=== PATIENT | male | born 1950 | race Caucasian/White ===

== ENCOUNTER 2019-07-06 08:45 | Inpatient (IN) ==
[2019-07-06] MEDS ORDERED: Naloxone 0.4 MG/ML INJ IVP PRN (10:53)
[2019-07-06] MEDS ORDERED: traMADol 50 MG TABLET PO PRN (11:37)
[2019-07-06] MEDS ORDERED: Acetaminophen 325 MG TABLET PO PRN (11:37)
[2019-07-06] MEDS: *HR* OxyCODONE Immed Rel 5 MG TABLET PO PRN ×2 (12:01→19:28)
[2019-07-06 12:13] LABS: Troponin I 0.13 ng/mL (< 0.04)
[2019-07-06] MEDS ORDERED: *HR* Phytonadione 5 MG TABLET PO ONE (12:38)
[2019-07-06] MEDS: hydrALAZINE 25 MG TABLET PO SCH (15:42)
[2019-07-06] MEDS ORDERED: Ondansetron 4 MG/2 ML VIAL IVP PRN (19:11)
[2019-07-07] MEDS ORDERED: Ondansetron 4 MG/2 ML VIAL IVP SCH
[2019-07-07] MEDS: hydrALAZINE 25 MG TABLET PO SCH ×4 (00:55→21:58)
[2019-07-07 01:15] LABS: Basophils % 0.4 %; Eosinophils # 0.2 K/mcL (0.0-0.6); Eosinophils % 2.9 %; Hematocrit 26.9 % (37.5-50.1); Hemoglobin 8.4 g/dL (12.9-16.9); Immature Granulocytes % 0.1 % (0-4); Lymphocytes # 0.6 K/mcL (0.6-4.6); Lymphocytes % 9.4 %; Mean Corpuscular HGB Conc 31.2 g/dL (31.6-35.5); Mean Corpuscular Hemoglobin 33.5 pg (28.0-33.3); Mean Corpuscular Volume 107.2 fL (83.0-100.0); Mean Platelet Volume 9.5 fL (9.4-12.4); Monocytes # 0.5 K/mcL (0.0-1.3); Monocytes % 6.6 %; Neutrophils # 5.5 K/mcL (1.6-8.9); Platelet Count 123 K/mcL (140-400); Red Blood Count 2.51 M/mcL (4.19-5.50); Red Cell Distribution Width 13.8 % (11.5-14.5); Segmented Neutrophils % 80.6 %; White Blood Count 6.8 K/mcL (4.3-11.1)
[2019-07-07 01:24] LABS: INR 2.2; Prothrombin Time 25.2 Seconds (9.4-12.1)
[2019-07-07 01:34] LABS: Calcium 8.7 mg/dL (8.6-10.3); Potassium 4.2 mEq/L (3.5-5.1)
[2019-07-07] MEDS: *HR* OxyCODONE Immed Rel 5 MG TABLET PO PRN ×2 (02:49→10:31)
[2019-07-07] MEDS ORDERED: Isosorbide MONOnitrate (24 HR) 30 MG TAB.ER.24H PO SCH (09:00)
[2019-07-07] MEDS ORDERED: FLUoxetine 20 MG CAPSULE PO SCH (09:00)
[2019-07-07] MEDS ORDERED: *HR* Heparin 5,000 UNIT/ML VIAL IVP PRN ×3 (12:32→20:45)
[2019-07-07] MEDS ORDERED: Heparin 25,000 UNIT/250 ML D5W 25,000 UNIT/250 ML IV.SOLN IVC SCH (12:45)
[2019-07-07 13:47] LABS: Hematocrit 26.3 % (37.5-50.1); Hemoglobin 8.2 g/dL (12.9-16.9); Mean Corpuscular HGB Conc 31.2 g/dL (31.6-35.5); Mean Corpuscular Hemoglobin 33.3 pg (28.0-33.3); Mean Corpuscular Volume 106.9 fL (83.0-100.0); Platelet Count 110 K/mcL (140-400); Red Blood Count 2.46 M/mcL (4.19-5.50); Red Cell Distribution Width 13.6 % (11.5-14.5); White Blood Count 6.4 K/mcL (4.3-11.1)
[2019-07-07 13:57] LABS: Heparin anti-factor XA UFH 0.02 IU/mL (0.30-0.70)
[2019-07-07 13:58] LABS: INR 1.5; Prothrombin Time 17.4 Seconds (9.4-12.1)
[2019-07-07] MEDS ORDERED: 0.9 % Sodium Chloride 250 ML ONE ×2 (14:13→16:47)
[2019-07-07] MEDS ORDERED: Morphine Sulfate 2 MG/ML SYRINGE IVP PRN (16:19)
[2019-07-07 17:04] LABS: INR 1.4; Prothrombin Time 15.9 Seconds (9.4-12.1)
[2019-07-07] MEDS ORDERED: Lidocaine -MPF 2% 2 ML VIAL ONE (17:47)
[2019-07-07] MEDS ORDERED: *HR* Etomidate 40 MG/20 ML VIAL IVP ONE (17:48)
[2019-07-07] MEDS ORDERED: *HR* FentaNYL (PF) 100 MCG/2 ML VIAL ONE (17:49)
[2019-07-07] MEDS ORDERED: *HR* PHENYLEPHRINE 1,000 MCG/10 ML SYRINGE IVP ONE (17:49)
[2019-07-07] MEDS ORDERED: ceFAZolin 2,000 MG in Water for inj. (sterile) 20 ML IVP ONE (17:52)
[2019-07-07] MEDS ORDERED: EPHEDrine 50 MG/ML VIAL ONE (17:56)
[2019-07-07] MEDS ORDERED: *HR* Propofol 200 MG/20 ML VIAL IVP ONE (17:58)
[2019-07-07] MEDS ORDERED: *HR* HYDROmorphone (PF) 1 MG/ML SYRINGE IVP PRN (18:06)
[2019-07-07] MEDS ORDERED: Ondansetron 4 MG/2 ML VIAL ONE (18:29)
[2019-07-07] MEDS ORDERED: *HR* Metoprolol 5 MG/5 ML VIAL IVP ONE (18:34)
[2019-07-07 19:16] LABS: Hematocrit 24.9 % (37.5-50.1); Hemoglobin 7.8 g/dL (12.9-16.9)
[2019-07-07] MEDS ORDERED: Naloxone 0.4 MG/ML INJ IVP PRN (19:43)
[2019-07-07] MEDS ORDERED: Ondansetron 4 MG/2 ML VIAL IVP PRN (19:43)
[2019-07-07] MEDS ORDERED: *HR* Heparin 5,000 UNIT/ML VIAL IVP ONE (20:45)
[2019-07-07] MEDS ORDERED: Darbepoetin 100 MCG/0.5 ML SYRINGE SQ ONE ×2 (21:00)
[2019-07-07 21:19] LABS: Hemoglobin 7.8 g/dL (12.9-16.9); Red Cell Distribution Width 13.7 % (11.5-14.5)
[2019-07-07 21:21] LABS: Immature Platelets 2.5 % (1.1-6.1); Mean Corpuscular HGB Conc 31.2 g/dL (31.6-35.5); Mean Corpuscular Hemoglobin 33.6 pg (28.0-33.3); Mean Corpuscular Volume 107.8 fL (83.0-100.0); Red Blood Count 2.32 M/mcL (4.19-5.50); White Blood Count 7.6 K/mcL (4.3-11.1)
[2019-07-07 21:27] LABS: Heparin anti-factor XA UFH 0.04 IU/mL (0.30-0.70); INR 1.2; Prothrombin Time 13.9 Seconds (9.4-12.1)
[2019-07-07] MEDS ORDERED: *HR* Warfarin 5 MG TABLET PO SCH (21:30)
[2019-07-07] MEDS: Heparin 25,000 UNIT/250 ML D5W 25,000 UNIT/250 ML IV.SOLN IVC SCH (21:56)
[2019-07-08 04:54] LABS: Hemoglobin 6.9 g/dL (12.9-16.9); Immature Granulocytes % 0.5 % (0-4); Monocytes % 7.7 %
[2019-07-08 04:56] LABS: Basophils % 0.4 %; Eosinophils # 0.2 K/mcL (0.0-0.6); Eosinophils % 2.5 %; Hematocrit 22.3 % (37.5-50.1); Immature Platelets 2.7 % (1.1-6.1); Lymphocytes # 0.6 K/mcL (0.6-4.6); Lymphocytes % 7.4 %; Mean Corpuscular HGB Conc 30.9 g/dL (31.6-35.5); Mean Corpuscular Hemoglobin 33.5 pg (28.0-33.3); Mean Corpuscular Volume 108.3 fL (83.0-100.0); Mean Platelet Volume 10.7 fL (9.4-12.4); Monocytes # 0.7 K/mcL (0.0-1.3); Red Blood Count 2.06 M/mcL (4.19-5.50); Red Cell Distribution Width 13.5 % (11.5-14.5); Segmented Neutrophils % 81.5 %; White Blood Count 8.4 K/mcL (4.3-11.1)
[2019-07-08 05:00] LABS: Neutrophils # 6.9 K/mcL (1.6-8.9); Platelet Count 88 K/mcL (140-400)
[2019-07-08 05:16] LABS: Calcium 8.6 mg/dL (8.6-10.3); Potassium 4.2 mEq/L (3.5-5.1)
[2019-07-08] MEDS: hydrALAZINE 25 MG TABLET PO SCH ×3 (05:28→21:00)
[2019-07-08 06:03] LABS: INR 1.3; Prothrombin Time 14.2 Seconds (9.4-12.1)
[2019-07-08] MEDS: traMADol 50 MG TABLET PO PRN (08:01)
[2019-07-08] MEDS: FLUoxetine 20 MG CAPSULE PO SCH (08:01)
[2019-07-08 08:31] LABS: Basophils % 0.3 %; Hematocrit 21.5 % (37.5-50.1); Hemoglobin 6.8 g/dL (12.9-16.9); Mean Corpuscular HGB Conc 31.6 g/dL (31.6-35.5)
[2019-07-08 08:33] LABS: Eosinophils # 0.1 K/mcL (0.0-0.6); Eosinophils % 1.6 %; Immature Granulocytes % 0.7 % (0-4); Lymphocytes # 0.7 K/mcL (0.6-4.6); Lymphocytes % 8.5 %; Mean Corpuscular Volume 107.5 fL (83.0-100.0); Mean Platelet Volume 10.5 fL (9.4-12.4); Monocytes # 0.7 K/mcL (0.0-1.3); Monocytes % 9.5 %; Neutrophils # 6.1 K/mcL (1.6-8.9); Red Cell Distribution Width 13.3 % (11.5-14.5); Segmented Neutrophils % 79.4 %; White Blood Count 7.7 K/mcL (4.3-11.1)
[2019-07-08 08:39] LABS: Platelet Count 89 K/mcL (140-400)
[2019-07-08] MEDS ORDERED: Isosorbide MONOnitrate (24 HR) 30 MG TAB.ER.24H PO SCH (09:00)
[2019-07-08] MEDS ORDERED: Furosemide 40 MG TABLET PO SCH (09:00)
[2019-07-08] MEDS ORDERED: 0.9 % Sodium Chloride 250 ML ONE ×2 (11:09→17:04)
[2019-07-08] MEDS: Acetaminophen 325 MG TABLET PO PRN (11:24)
[2019-07-08] MEDS: *HR* Heparin 5,000 UNIT/ML VIAL IVP PRN (14:00)
[2019-07-08] MEDS: *HR* OxyCODONE Immed Rel 5 MG TABLET PO PRN ×2 (15:38→21:08)
[2019-07-08 16:09] LABS: Hematocrit 22.5 % (37.5-50.1); Hemoglobin 7.4 g/dL (12.9-16.9)
[2019-07-08] MEDS ORDERED: *HR* Warfarin 5 MG TABLET PO SCH (18:00)
[2019-07-08] MEDS ORDERED: Warfarin perPT PO PRN (18:00)
[2019-07-08] MEDS ORDERED: *HR* Warfarin 5 MG TABLET PO ONE (18:00)
[2019-07-09] MEDS: Heparin 25,000 UNIT/250 ML D5W 25,000 UNIT/250 ML IV.SOLN IVC SCH (02:11)
[2019-07-09 03:12] LABS: Hematocrit 24.3 % (37.5-50.1); Hemoglobin 7.9 g/dL (12.9-16.9); Immature Platelets 3.2 % (1.1-6.1); Mean Corpuscular HGB Conc 32.5 g/dL (31.6-35.5); Mean Corpuscular Hemoglobin 32.5 pg (28.0-33.3); Mean Platelet Volume 10.7 fL (9.4-12.4); Red Blood Count 2.43 M/mcL (4.19-5.50); Red Cell Distribution Width 15.4 % (11.5-14.5); White Blood Count 7.3 K/mcL (4.3-11.1)
[2019-07-09 03:26] LABS: INR 1.2
[2019-07-09 03:32] LABS: Calcium 8.4 mg/dL (8.6-10.3)
[2019-07-09] MEDS: hydrALAZINE 25 MG TABLET PO SCH (04:39)
[2019-07-09] MEDS: FLUoxetine 20 MG CAPSULE PO SCH (10:40)
[2019-07-09] MEDS: *HR* OxyCODONE Immed Rel 5 MG TABLET PO PRN (10:40)
[2019-07-09] MEDS: 0.9 % Sodium Chloride 1,000 ML IVC SCH ×2 (10:40→19:31)
[2019-07-09] MEDS: *HR* Heparin 5,000 UNIT/ML VIAL IVP PRN ×2 (11:52→20:41)
[2019-07-09] MEDS: traMADol 50 MG TABLET PO PRN (17:15)
[2019-07-09] MEDS ORDERED: 0.9 % Sodium Chloride 500 ML IVC ONE (17:38)
[2019-07-09] MEDS ORDERED: *HR* Warfarin 7.5 MG TABLET PO ONE (18:00)
[2019-07-10 02:56] LABS: Basophils % 0.3 %; Eosinophils # 0.5 K/mcL (0.0-0.6); Eosinophils % 7.6 %; Hematocrit 18.8 % (37.5-50.1); Immature Granulocytes % 0.3 % (0-4); Lymphocytes # 0.6 K/mcL (0.6-4.6); Lymphocytes % 10.1 %; Mean Corpuscular Hemoglobin 33.3 pg (28.0-33.3); Mean Corpuscular Volume 101.1 fL (83.0-100.0); Mean Platelet Volume 10.5 fL (9.4-12.4); Monocytes # 0.9 K/mcL (0.0-1.3); Monocytes % 13.5 %; Neutrophils # 4.3 K/mcL (1.6-8.9); Platelet Count 106 K/mcL (140-400); Red Blood Count 1.86 M/mcL (4.19-5.50); Red Cell Distribution Width 14.9 % (11.5-14.5); Segmented Neutrophils % 68.2 %; White Blood Count 6.3 K/mcL (4.3-11.1)
[2019-07-10] MEDS: Heparin 25,000 UNIT/250 ML D5W 25,000 UNIT/250 ML IV.SOLN IVC SCH ×3 (02:56→23:00)
[2019-07-10 03:05] LABS: INR 1.2; Prothrombin Time 13.5 Seconds (9.4-12.1)
[2019-07-10 03:12] LABS: Calcium 8.1 mg/dL (8.6-10.3); Potassium 3.8 mEq/L (3.5-5.1)
[2019-07-10 03:20] LABS: Hemoglobin 6.2 g/dL (12.9-16.9)
[2019-07-10] MEDS ORDERED: 0.9 % Sodium Chloride 250 ML ONE ×2 (04:09→09:52)
[2019-07-10] MEDS: FLUoxetine 20 MG CAPSULE PO SCH (08:24)
[2019-07-10] MEDS: *HR* OxyCODONE Immed Rel 5 MG TABLET PO PRN (13:11)
[2019-07-10 13:55] LABS: Hemoglobin 8.8 g/dL (12.9-16.9)
[2019-07-10] MEDS ORDERED: 0.9 % Sodium Chloride 1,000 ML IVC SCH (14:30)
[2019-07-10] MEDS ORDERED: *HR* Warfarin 5 MG TABLET PO ONE (18:00)
[2019-07-10 22:03] LABS: Hematocrit 25.4 % (37.5-50.1); Hemoglobin 8.6 g/dL (12.9-16.9)
[2019-07-11] MEDS: traMADol 50 MG TABLET PO PRN ×3 (04:35→20:25)
[2019-07-11 05:51] LABS: Hematocrit 25.1 % (37.5-50.1); Hemoglobin 8.3 g/dL (12.9-16.9); Mean Corpuscular HGB Conc 33.1 g/dL (31.6-35.5); Mean Corpuscular Hemoglobin 33.1 pg (28.0-33.3); Mean Platelet Volume 10.9 fL (9.4-12.4); Platelet Count 118 K/mcL (140-400); Red Blood Count 2.51 M/mcL (4.19-5.50); Red Cell Distribution Width 15.2 % (11.5-14.5); White Blood Count 6.6 K/mcL (4.3-11.1)
[2019-07-11 05:56] LABS: INR 1.3; Prothrombin Time 15.2 Seconds (9.4-12.1)
[2019-07-11 06:12] LABS: Calcium 8.3 mg/dL (8.6-10.3); Potassium 3.8 mEq/L (3.5-5.1)
[2019-07-11] MEDS: *HR* OxyCODONE Immed Rel 5 MG TABLET PO PRN (07:49)
[2019-07-11] MEDS: FLUoxetine 20 MG CAPSULE PO SCH (07:50)
[2019-07-11] MEDS: *HR* Heparin 5,000 UNIT/ML VIAL IVP PRN ×2 (10:16→23:31)
[2019-07-11 15:56] LABS: Hematocrit 25.5 % (37.5-50.1); Hemoglobin 8.5 g/dL (12.9-16.9)
[2019-07-11] MEDS ORDERED: *HR* Warfarin 5 MG TABLET PO ONE (18:00)
[2019-07-11] MEDS: Heparin 25,000 UNIT/250 ML D5W 25,000 UNIT/250 ML IV.SOLN IVC SCH (20:26)
[2019-07-12] MEDS: *HR* OxyCODONE Immed Rel 5 MG TABLET PO PRN ×3 (02:58→20:46)
[2019-07-12 07:47] LABS: Hematocrit 24.4 % (37.5-50.1); Hemoglobin 8.1 g/dL (12.9-16.9); Mean Corpuscular HGB Conc 33.2 g/dL (31.6-35.5); Mean Corpuscular Hemoglobin 32.8 pg (28.0-33.3); Mean Corpuscular Volume 98.8 fL (83.0-100.0); Platelet Count 148 K/mcL (140-400); Red Blood Count 2.47 M/mcL (4.19-5.50); Red Cell Distribution Width 14.6 % (11.5-14.5); White Blood Count 8.2 K/mcL (4.3-11.1)
[2019-07-12 07:55] LABS: INR 1.6; Prothrombin Time 17.8 Seconds (9.4-12.1)
[2019-07-12 08:06] LABS: Calcium 8.5 mg/dL (8.6-10.3); Potassium 4.1 mEq/L (3.5-5.1)
[2019-07-12] MEDS: *HR* Heparin 5,000 UNIT/ML VIAL IVP PRN (09:32)
[2019-07-12] MEDS: FLUoxetine 20 MG CAPSULE PO SCH (09:33)
[2019-07-12 11:06] LABS: Adenovirus Not Detected (Not Detect); Bordetella Pertussis Not Detected (Not Detect); Chlamydophila pneumoniae Not Detected (Not Detect); Coronavirus 229E Not Detected (Not Detect); Coronavirus HKU1 Not Detected (Not Detect); Coronavirus NL63 Not Detected (Not Detect); Coronavirus OC43 Not Detected (Not Detect); Human Metapneumovirus Not Detected (Not Detect); Human Rhinovirus/Enterovirus Not Detected (Not Detect); Influenza A Subtype 2009 H1 Not Detected (Not Detect); Influenza A Untypeable Not Detected (Not Detect); Influenza B Not Detected (Not Detect); Mycoplasma pneumoniae Not Detected (Not Detect); Parainfluenza Virus 1 Not Detected (Not Detect); Parainfluenza Virus 2 Not Detected (Not Detect); Parainfluenza Virus 3 Not Detected (Not Detect); Parainfluenza Virus 4 Not Detected (Not Detect); Respiratory Syncytial Virus Not Detected (Not Detect)
[2019-07-12] MEDS: traMADol 50 MG TABLET PO PRN (13:36)
[2019-07-12] MEDS: Acetaminophen 325 MG TABLET PO PRN (13:36)
[2019-07-12] MEDS: Acetaminophen 325 MG TABLET PO SCH ×2 (15:18→20:46)
[2019-07-12] MEDS: Heparin 25,000 UNIT/250 ML D5W 25,000 UNIT/250 ML IV.SOLN IVC SCH (16:04)
[2019-07-12] MEDS ORDERED: *HR* Warfarin 5 MG TABLET PO ONE (18:00)
[2019-07-13] MEDS: Acetaminophen 325 MG TABLET PO SCH ×3 (05:08→20:45)
[2019-07-13 05:53] LABS: Basophils % 0.4 %; Eosinophils # 0.6 K/mcL (0.0-0.6); Eosinophils % 6.5 %; Hematocrit 22.6 % (37.5-50.1); Hemoglobin 7.3 g/dL (12.9-16.9); Immature Granulocytes % 0.3 % (0-4); Lymphocytes # 0.8 K/mcL (0.6-4.6); Mean Corpuscular HGB Conc 32.3 g/dL (31.6-35.5); Mean Corpuscular Hemoglobin 32.3 pg (28.0-33.3); Mean Platelet Volume 10.4 fL (9.4-12.4); Monocytes # 1.2 K/mcL (0.0-1.3); Monocytes % 13.9 %; Neutrophils # 6.2 K/mcL (1.6-8.9); Platelet Count 166 K/mcL (140-400); Red Blood Count 2.26 M/mcL (4.19-5.50); Red Cell Distribution Width 14.4 % (11.5-14.5); Segmented Neutrophils % 69.9 %; White Blood Count 8.9 K/mcL (4.3-11.1)
[2019-07-13 05:57] LABS: INR 1.7; Prothrombin Time 19.7 Seconds (9.4-12.1)
[2019-07-13 06:12] LABS: Calcium 8.5 mg/dL (8.6-10.3); Magnesium 2.1 mg/dL (1.6-2.6); Potassium 3.9 mEq/L (3.5-5.1)
[2019-07-13] MEDS ORDERED: Sodium Bicarbonate 75 MEQ in 0.45 % Sodium Chloride 1,000 ML IVC SCH (09:15)
[2019-07-13] MEDS: FLUoxetine 20 MG CAPSULE PO SCH (09:33)
[2019-07-13] MEDS ORDERED: 0.9 % Sodium Chloride 250 ML ONE (10:27)
[2019-07-13] MEDS: Heparin 25,000 UNIT/250 ML D5W 25,000 UNIT/250 ML IV.SOLN IVC SCH (10:53)
[2019-07-13 16:18] LABS: Hematocrit 25.4 % (37.5-50.1); Hemoglobin 8.4 g/dL (12.9-16.9)
[2019-07-13] MEDS ORDERED: *HR* Warfarin 5 MG TABLET PO ONE (18:00)
[2019-07-13] MEDS: Pantoprazole 40 MG VIAL IVP SCH ×2 (18:11→18:18)
[2019-07-13] MEDS ORDERED: MOM Conc 10 ML UD.LIQ PO ONE (18:23)
[2019-07-13] MEDS: *HR* Heparin 5,000 UNIT/ML VIAL IVP PRN (22:52)
[2019-07-14] MEDS: Heparin 25,000 UNIT/250 ML D5W 25,000 UNIT/250 ML IV.SOLN IVC SCH (03:16)
[2019-07-14 05:23] LABS: Basophils % 0.4 %; Eosinophils # 0.3 K/mcL (0.0-0.6); Eosinophils % 3.9 %; Hematocrit 24.4 % (37.5-50.1); Hemoglobin 8.3 g/dL (12.9-16.9); Immature Granulocytes % 0.5 % (0-4); Lymphocytes # 0.6 K/mcL (0.6-4.6); Lymphocytes % 7.6 %; Mean Corpuscular Hemoglobin 32.4 pg (28.0-33.3); Mean Corpuscular Volume 95.3 fL (83.0-100.0); Mean Platelet Volume 9.4 fL (9.4-12.4); Monocytes % 11.9 %; Neutrophils # 6.4 K/mcL (1.6-8.9); Platelet Count 195 K/mcL (140-400); Red Blood Count 2.56 M/mcL (4.19-5.50); Red Cell Distribution Width 16.2 % (11.5-14.5); Segmented Neutrophils % 75.7 %; White Blood Count 8.5 K/mcL (4.3-11.1)
[2019-07-14 05:31] LABS: Prothrombin Time 21.7 Seconds (9.4-12.1)
[2019-07-14 05:32] LABS: INR 1.9
[2019-07-14] MEDS: Pantoprazole 40 MG VIAL IVP SCH ×2 (05:33→16:55)
[2019-07-14] MEDS: Acetaminophen 325 MG TABLET PO SCH ×3 (05:33→22:32)
[2019-07-14 05:43] LABS: Calcium 8.3 mg/dL (8.6-10.3); Potassium 4.3 mEq/L (3.5-5.1)
[2019-07-14] MEDS: FLUoxetine 20 MG CAPSULE PO SCH (08:29)
[2019-07-14] MEDS: Bisacodyl 10 MG RECTAL SUPPOSITORY RC SCH (08:29)
[2019-07-14] MEDS: traMADol 50 MG TABLET PO PRN ×2 (08:51→22:31)
[2019-07-14] MEDS ORDERED: Sodium Bicarbonate 75 MEQ in 0.45 % Sodium Chloride 1,000 ML IVC SCH (11:45)
[2019-07-14] MEDS: *HR* OxyCODONE Immed Rel 5 MG TABLET PO PRN (15:04)
[2019-07-14] MEDS ORDERED: *HR* OxyCODONE Immed Rel 5 MG TABLET PO ONE (16:14)
[2019-07-14] MEDS ORDERED: *HR* Warfarin 7.5 MG TABLET PO ONE (18:00)
[2019-07-15] MEDS: Acetaminophen 325 MG TABLET PO SCH ×3 (05:20→22:14)
[2019-07-15] MEDS: Pantoprazole 40 MG VIAL IVP SCH ×2 (05:21→19:55)
[2019-07-15 05:43] LABS: Basophils % 0.2 %; Eosinophils # 0.2 K/mcL (0.0-0.6); Eosinophils % 2.4 %; Immature Granulocytes % 0.5 % (0-4); Lymphocytes # 0.6 K/mcL (0.6-4.6); Lymphocytes % 6.8 %; Mean Corpuscular HGB Conc 33.3 g/dL (31.6-35.5); Mean Platelet Volume 9.7 fL (9.4-12.4); Monocytes # 0.8 K/mcL (0.0-1.3); Monocytes % 10.4 %; Neutrophils # 6.4 K/mcL (1.6-8.9); Platelet Count 231 K/mcL (140-400); Red Cell Distribution Width 15.8 % (11.5-14.5); Segmented Neutrophils % 79.7 %; White Blood Count 8.1 K/mcL (4.3-11.1)
[2019-07-15 05:48] LABS: INR 2.8; Prothrombin Time 32.1 Seconds (9.4-12.1)
[2019-07-15 06:04] LABS: Calcium 8.4 mg/dL (8.6-10.3); Magnesium 2.4 mg/dL (1.6-2.6); Potassium 4.2 mEq/L (3.5-5.1)
[2019-07-15] MEDS ORDERED: Sodium Bicarbonate 150 MEQ in D5% in Water 1,000 ML IVC SCH (08:15)
[2019-07-15] MEDS: FLUoxetine 20 MG CAPSULE PO SCH (09:01)
[2019-07-15] MEDS: Bisacodyl 10 MG RECTAL SUPPOSITORY RC SCH (09:02)
[2019-07-15 10:29] LABS: Hemoglobin 7.9 g/dL (12.9-16.9)
[2019-07-15] MEDS: *HR* OxyCODONE Immed Rel 5 MG TABLET PO PRN (14:22)
[2019-07-16] MEDS: Acetaminophen 325 MG TABLET PO SCH ×3 (06:02→23:08)
[2019-07-16] MEDS: Pantoprazole 40 MG VIAL IVP SCH ×2 (06:02→17:44)
[2019-07-16 07:47] LABS: INR 3.5; Prothrombin Time 39.6 Seconds (9.4-12.1)
[2019-07-16 07:55] LABS: Basophils % 0.2 %; Eosinophils # 0.7 K/mcL (0.0-0.6); Eosinophils % 7.3 %; Hematocrit 23.9 % (37.5-50.1); Hemoglobin 7.9 g/dL (12.9-16.9); Immature Granulocytes % 0.4 % (0-4); Lymphocytes # 0.5 K/mcL (0.6-4.6); Mean Corpuscular HGB Conc 33.1 g/dL (31.6-35.5); Mean Corpuscular Hemoglobin 32.1 pg (28.0-33.3); Mean Corpuscular Volume 97.2 fL (83.0-100.0); Mean Platelet Volume 9.7 fL (9.4-12.4); Monocytes # 0.8 K/mcL (0.0-1.3); Neutrophils # 6.9 K/mcL (1.6-8.9); Platelet Count 276 K/mcL (140-400); Red Blood Count 2.46 M/mcL (4.19-5.50); Red Cell Distribution Width 15.3 % (11.5-14.5); Segmented Neutrophils % 77.1 %
[2019-07-16 08:00] LABS: Calcium 8.5 mg/dL (8.6-10.3); Phosphorous 5.3 mg/dL (2.7-4.5); Potassium 3.9 mEq/L (3.5-5.1)
[2019-07-16 08:19] LABS: INR 3.5; Prothrombin Time 39.9 Seconds (9.4-12.1)
[2019-07-16 08:24] LABS: Folate 16.2 ng/mL (3.0-16.0)
[2019-07-16] MEDS: FLUoxetine 20 MG CAPSULE PO SCH (09:48)
[2019-07-16] MEDS: Bisacodyl 10 MG RECTAL SUPPOSITORY RC SCH (09:49)
[2019-07-16] MEDS ORDERED: Albumin 25% 25gram/100mL 25 GM/100 ML IV.SOLN IVPB ONE (11:34)
[2019-07-16] MEDS: Furosemide 40 MG/4 ML VIAL IVP ONE (14:48)
[2019-07-16 17:13] LABS: Hematocrit 23.6 % (37.5-50.1); Hemoglobin 7.9 g/dL (12.9-16.9); Mean Corpuscular HGB Conc 33.5 g/dL (31.6-35.5); Mean Corpuscular Hemoglobin 31.9 pg (28.0-33.3); Mean Corpuscular Volume 95.2 fL (83.0-100.0); Mean Platelet Volume 9.4 fL (9.4-12.4); Platelet Count 300 K/mcL (140-400); Red Blood Count 2.48 M/mcL (4.19-5.50); Red Cell Distribution Width 15.4 % (11.5-14.5)
[2019-07-17 02:17] LABS: Basophils % 0.3 %; Eosinophils # 0.5 K/mcL (0.0-0.6); Eosinophils % 5.6 %; Hematocrit 23.5 % (37.5-50.1); Hemoglobin 7.7 g/dL (12.9-16.9); Immature Granulocytes % 0.5 % (0-4); Lymphocytes # 0.6 K/mcL (0.6-4.6); Lymphocytes % 7.2 %; Mean Corpuscular HGB Conc 32.8 g/dL (31.6-35.5); Mean Corpuscular Volume 97.5 fL (83.0-100.0); Mean Platelet Volume 9.7 fL (9.4-12.4); Monocytes # 0.8 K/mcL (0.0-1.3); Monocytes % 9.4 %; Neutrophils # 6.6 K/mcL (1.6-8.9); Platelet Count 303 K/mcL (140-400); Red Blood Count 2.41 M/mcL (4.19-5.50); Red Cell Distribution Width 15.3 % (11.5-14.5); White Blood Count 8.6 K/mcL (4.3-11.1)
[2019-07-17 02:31] LABS: Prothrombin Time 34.4 Seconds (9.4-12.1)
[2019-07-17 02:34] LABS: Calcium 8.4 mg/dL (8.6-10.3); Magnesium 2.4 mg/dL (1.6-2.6); Phosphorous 5.3 mg/dL (2.7-4.5); Potassium 3.9 mEq/L (3.5-5.1)
[2019-07-17] MEDS: Acetaminophen 325 MG TABLET PO SCH ×3 (06:17→21:38)
[2019-07-17] MEDS: Pantoprazole 40 MG VIAL IVP SCH ×2 (06:18→16:51)
[2019-07-17] MEDS: FLUoxetine 20 MG CAPSULE PO SCH (08:32)
[2019-07-17] MEDS: Bisacodyl 10 MG RECTAL SUPPOSITORY RC SCH (08:35)
[2019-07-17] MEDS ORDERED: Albumin 25% 25gram/100mL 25 GM/100 ML IV.SOLN IVPB ONE (10:44)
[2019-07-17] MEDS ORDERED: Furosemide 40 MG/4 ML VIAL IVP ONE (10:44)
[2019-07-17] MEDS ORDERED: Furosemide 20 MG/2 ML VIAL IVP ONE (11:14)
[2019-07-17] MEDS: Furosemide 40 MG/4 ML VIAL IVP ONE (13:43)
[2019-07-17] MEDS: traMADol 50 MG TABLET PO PRN (16:55)
[2019-07-18 04:23] LABS: Basophils % 0.4 %; Eosinophils # 0.7 K/mcL (0.0-0.6); Eosinophils % 8.2 %; Hematocrit 25.2 % (37.5-50.1); Hemoglobin 8.5 g/dL (12.9-16.9); Immature Granulocytes % 0.5 % (0-4); Lymphocytes # 0.7 K/mcL (0.6-4.6); Lymphocytes % 8.1 %; Mean Corpuscular HGB Conc 33.7 g/dL (31.6-35.5); Mean Corpuscular Hemoglobin 32.1 pg (28.0-33.3); Mean Corpuscular Volume 95.1 fL (83.0-100.0); Mean Platelet Volume 9.5 fL (9.4-12.4); Monocytes # 0.7 K/mcL (0.0-1.3); Monocytes % 8.4 %; Neutrophils # 6.3 K/mcL (1.6-8.9); Platelet Count 389 K/mcL (140-400); Red Blood Count 2.65 M/mcL (4.19-5.50); Red Cell Distribution Width 15.3 % (11.5-14.5); Segmented Neutrophils % 74.4 %; White Blood Count 8.4 K/mcL (4.3-11.1)
[2019-07-18 04:31] LABS: INR 2.8; Prothrombin Time 31.7 Seconds (9.4-12.1)
[2019-07-18 04:39] LABS: Calcium 8.5 mg/dL (8.6-10.3); Magnesium 2.3 mg/dL (1.6-2.6); Phosphorous 5.6 mg/dL (2.7-4.5); Potassium 3.8 mEq/L (3.5-5.1)
[2019-07-18] MEDS: Acetaminophen 325 MG TABLET PO SCH ×3 (06:03→22:26)
[2019-07-18] MEDS: Pantoprazole 40 MG VIAL IVP SCH (06:06)
[2019-07-18] MEDS: Bisacodyl 10 MG RECTAL SUPPOSITORY RC SCH (09:44)
[2019-07-18] MEDS: FLUoxetine 20 MG CAPSULE PO SCH (09:44)
[2019-07-18] MEDS ORDERED: Warfarin perPT PO PRN (14:17)
[2019-07-18] MEDS ORDERED: *HR* Warfarin 5 MG TABLET PO ONE (18:00)
[2019-07-19 05:20] LABS: Basophils % 0.5 %; Eosinophils # 0.7 K/mcL (0.0-0.6); Eosinophils % 8.4 %; Hematocrit 25.5 % (37.5-50.1); Hemoglobin 8.3 g/dL (12.9-16.9); Immature Granulocytes % 0.7 % (0-4); Lymphocytes # 0.8 K/mcL (0.6-4.6); Lymphocytes % 9.7 %; Mean Corpuscular HGB Conc 32.5 g/dL (31.6-35.5); Mean Corpuscular Hemoglobin 31.6 pg (28.0-33.3); Mean Platelet Volume 9.5 fL (9.4-12.4); Monocytes # 0.8 K/mcL (0.0-1.3); Platelet Count 417 K/mcL (140-400); Red Blood Count 2.63 M/mcL (4.19-5.50); Red Cell Distribution Width 15.2 % (11.5-14.5); Segmented Neutrophils % 71.7 %; White Blood Count 8.3 K/mcL (4.3-11.1)
[2019-07-19 05:24] LABS: INR 2.6; Prothrombin Time 29.9 Seconds (9.4-12.1)
[2019-07-19 05:38] LABS: Calcium 8.3 mg/dL (8.6-10.3); Magnesium 2.3 mg/dL (1.6-2.6); Potassium 3.6 mEq/L (3.5-5.1)
[2019-07-19 05:40] LABS: Phosphorous 5.1 mg/dL (2.7-4.5)
[2019-07-19] MEDS: Acetaminophen 325 MG TABLET PO SCH ×3 (06:25→22:41)
[2019-07-19] MEDS: FLUoxetine 20 MG CAPSULE PO SCH (08:07)
[2019-07-19] MEDS: Bisacodyl 10 MG RECTAL SUPPOSITORY RC SCH (08:08)
[2019-07-19] MEDS ORDERED: Ferumoxytol 510 MG in 0.9 % Sodium Chloride 100 ML IVPB ONE (11:04)
[2019-07-19] MEDS: traMADol 50 MG TABLET PO PRN (13:02)
[2019-07-19] MEDS ORDERED: *HR* Warfarin 5 MG TABLET PO ONE (18:00)
[2019-07-20] MEDS: Acetaminophen 325 MG TABLET PO SCH ×3 (06:04→21:31)
[2019-07-20 07:42] LABS: Basophils % 0.5 %; Eosinophils # 0.7 K/mcL (0.0-0.6); Eosinophils % 7.6 %; Hematocrit 26.3 % (37.5-50.1); Hemoglobin 8.4 g/dL (12.9-16.9); Immature Granulocytes % 0.9 % (0-4); Lymphocytes # 0.9 K/mcL (0.6-4.6); Mean Corpuscular HGB Conc 31.9 g/dL (31.6-35.5); Mean Corpuscular Hemoglobin 31.3 pg (28.0-33.3); Mean Corpuscular Volume 98.1 fL (83.0-100.0); Mean Platelet Volume 9.4 fL (9.4-12.4); Monocytes # 0.7 K/mcL (0.0-1.3); Monocytes % 7.9 %; Neutrophils # 6.3 K/mcL (1.6-8.9); Platelet Count 469 K/mcL (140-400); Red Blood Count 2.68 M/mcL (4.19-5.50); Red Cell Distribution Width 15.4 % (11.5-14.5); Segmented Neutrophils % 73.1 %; White Blood Count 8.6 K/mcL (4.3-11.1)
[2019-07-20 07:45] LABS: Magnesium 2.2 mg/dL (1.6-2.6); Phosphorous 5.3 mg/dL (2.7-4.5)
[2019-07-20 07:48] LABS: Calcium 8.4 mg/dL (8.6-10.3); Potassium 3.8 mEq/L (3.5-5.1)
[2019-07-20 07:52] LABS: INR 2.8; Prothrombin Time 31.7 Seconds (9.4-12.1)
[2019-07-20] MEDS: FLUoxetine 20 MG CAPSULE PO SCH (08:14)
[2019-07-20] MEDS: Bisacodyl 10 MG RECTAL SUPPOSITORY RC SCH (08:15)
[2019-07-20] MEDS: Furosemide 40 MG TABLET PO SCH (14:13)
[2019-07-20] MEDS ORDERED: *HR* Warfarin 2.5 MG TABLET PO ONE (18:00)
[2019-07-20] MEDS: traMADol 50 MG TABLET PO PRN (21:21)
[2019-07-21 05:19] LABS: Basophils # 0.1 K/mcL (0.0-0.2); Basophils % 0.5 %; Eosinophils # 0.5 K/mcL (0.0-0.6); Eosinophils % 5.7 %; Hematocrit 27.6 % (37.5-50.1); Hemoglobin 8.7 g/dL (12.9-16.9); Immature Granulocytes % 0.9 % (0-4); Lymphocytes # 1.1 K/mcL (0.6-4.6); Lymphocytes % 11.5 %; Mean Corpuscular HGB Conc 31.5 g/dL (31.6-35.5); Mean Corpuscular Hemoglobin 31.3 pg (28.0-33.3); Mean Corpuscular Volume 99.3 fL (83.0-100.0); Mean Platelet Volume 9.4 fL (9.4-12.4); Monocytes # 0.8 K/mcL (0.0-1.3); Monocytes % 8.2 %; Neutrophils # 6.7 K/mcL (1.6-8.9); Platelet Count 466 K/mcL (140-400); Red Blood Count 2.78 M/mcL (4.19-5.50); Red Cell Distribution Width 15.6 % (11.5-14.5); Segmented Neutrophils % 73.2 %; White Blood Count 9.2 K/mcL (4.3-11.1)
[2019-07-21 05:23] LABS: INR 3.1; Prothrombin Time 35.4 Seconds (9.4-12.1)
[2019-07-21 05:38] LABS: Calcium 8.6 mg/dL (8.6-10.3); Potassium 3.6 mEq/L (3.5-5.1)
[2019-07-21] MEDS: Acetaminophen 325 MG TABLET PO SCH ×2 (06:37→15:20)
[2019-07-21] MEDS: FLUoxetine 20 MG CAPSULE PO SCH (09:35)
[2019-07-21] MEDS: Furosemide 40 MG TABLET PO SCH (09:36)
[2019-07-21] MEDS: Bisacodyl 10 MG RECTAL SUPPOSITORY RC SCH (09:44)
[2019-07-21 10:31] VITALS: BP 100/55
[2019-07-21] MEDS ORDERED: FLU Vac QV 19-20 (6Month+)/PF 0.5 ML SYRINGE IM ONE (14:04)
[2019-07-21] MEDS ORDERED: *HR* Warfarin 2.5 MG TABLET PO ONE (18:00)
== END 2019-07-21 16:15 | disposition home health service (06) | DRG 480 ==
LOC: 2NENU 10:42 → SUATTDRO 10:42 → 3NENU 07-07 18:08
PROVIDERS: ADMIT Internal Medicine; ATTEND Internal Medicine